=== PATIENT | male | born 1955 | race Caucasian/White ===

== ENCOUNTER → 2023-07-14 | Outpatient (CLI) | payer MEDICARE, SELFPAY ==
[2023-07-14 07:25] LABS: Absolute Lymphocyte Count 2.07 X10^3/uL (0.83-4.51); Absolute Neutrophil Count 3.5 X10^3/uL (2.0-7.7); Basophil# 0.11 X10^3/uL; Basophil% 1.6 % (0-1); Eosinophil# 0.52 X10^3/uL; Eosinophils% 7.7 % (0-5); Hematocrit 47.4 % (40-54); Hemoglobin 15.4 g/dL (13.0-16.5); Lymphocyte # 2.07 X10^3/ul (0.83-4.51); Lymphocyte % 30.5 % (19-41); Mean Corp Hgb Conc 32.5 g/dL (32-36); Mean Corpuscular Hgb 30.8 pg (27.0-32.0); Mean Corpuscular Volume 94.8 fL (80-94); Mean Platelet Vol. 11.2 fl (6.2-12.0); Monocyte# 0.57 X10^3/uL; Monocyte% 8.4 % (0-10); NRBC Flagged by Analyzer 0 % (0-5); Neutrophil % 51.5 % (47-70); Platelet Count 190 K/mm3 (150-450); RBC Distribution Width CV 13.2 % (11.6-14.6); RBC Distribution Width SD 45.6 fl (35.1-43.9); White Blood Count 6.8 K/mm3 (4.4-11.0)
[2023-07-14 08:06] LABS: ALB/GLOB Ratio 1.1 RATIO (0.9-2.4); AST(SGOT) 11 U/L (15-37); Alanine Aminotransfer ALT/SGPT 14 U/L (16-61); Albumin, Serum 3.6 g/dL (3.2-5.0); Alkaline Phosphatase 52 U/L (45-117); Anion Gap 3 (5-15); BUN 15 mg/dL (7-18); Calcium,Total 9.2 mg/dL (8.5-10.1); Chloride 110 mmol/L (98-107); Cholesterol 143 mg/dL (200); EST Glomerular Filtration Rate 79 mL/min (>60); Est Glom Filt Rate - Afr Amer 96 mL/min (>60); Globulin 3.2 g/dL (2.2-4.2); Glucose 92 mg/dL (74-106); High Density Lipoprotein 65 mg/dL; PSA,Total - Annual Screen 0.92 ng/mL (0.00-4.00); Protein, Total 6.8 g/dL (6.4-8.2); Sodium Level 141 mmol/L (136-145); Thyroid Stim Hormone (TSH) 2.31 uIU/mL (0.358-3.74); Triglycerides 49 mg/dL; Very Low Density Lipoprotein 10 mg/dL (5-40)
[2023-07-14 08:20] LABS: Vitamin D,25 Hydroxy 13.6 ng/mL
== END | disposition home or self-care (01) ==
LOC: LAB 06:04
PROVIDERS: PCP Internal Medicine; Referring Provider Internal Medicine; Visit Provider Internal Medicine
DX: Z13.220 Encounter for screening for lipoid disorders (principal); F17.210 Nicotine dependence, cigarettes, uncomplicated; E55.9 Vitamin D deficiency, unspecified; Z12.5 Encounter for screening for malignant neoplasm of prostate
CPT/HCPCS: 36415; 80053; 80061; 82306; 84153; 84443; 85025; G0103

== ENCOUNTER → 2023-07-17 | Outpatient (CLI) | payer MEDICARE, SELFPAY ==
--- NOTE | 2023-07-17 13:30 | RAD_ITS ---
EXAM: XR LUMBOSACRAL SPINE, 2 OR 3 VIEWS CLINICAL INDICATION: Low back and radicular pain TECHNIQUE: Frontal and lateral views of the lumbar spine and sacrum. COMPARISON: No relevant prior studies available. FINDINGS: VERTEBRAE: Mild anterior wedging at T12 and L1 vertebral bodies are presumably from remote injury. Mild degenerative retrolisthesis of L1 on L2, L2 on L3 and L3 on L4. No spondylolisthesis. Preservation of the normal lumbar lordosis. No significant facet arthropathy. DISC SPACES: No acute findings. Normal lumbar disc space heights. GASTROINTESTINAL TRACT: Unremarkable as visualized. Included bowel gas pattern is non-obstructive. RAD/Lumbar Spine 2 or 3 Views IMPRESSION: 1. Mild anterior wedging of T12 and L1 vertebral bodies are presumably from remote injury. The lateral views are not true lateral at the thoracolumbar junction. 2. No suspicious acute fractures of the lumbar spine. 3. Mild degenerative retrolisthesis of L1 on L2, L2 on L3 and L3 on L4. Electronically Signed: Eladio Kemp MD at 12:05 EST ,
== END | disposition home or self-care (01) ==
LOC: RAD 13:21
PROVIDERS: PCP Internal Medicine; Referring Provider Internal Medicine; Visit Provider Internal Medicine
DX: M54.50 Low back pain, unspecified (principal); M54.10 Radiculopathy, site unspecified
CPT/HCPCS: 72100

== ENCOUNTER 2023-08-11 11:30 | Outpatient (RCR) | payer MEDICARE, SELFPAY ==
--- NOTE | 2023-08-06 12:28 | HP.PTEVAL_ITS ---
Patient's Visit Information Visit Information Visit Information: JULY BURKS is a 68 year old M referred to Physical Therapy by Dr. Monica Valenzuela MD with a diagnosis of Dysfunction of the R RC. Date of Evaluation: 08/06/23 Physical Therapist: ROSS Garcia Visit Plan Frequency: 1-2x /Week Duration: 6 Weeks Plan: 1-2X/ week for 6 weeks for R shoulder scapular strength, RC strength, p ostural exercises with HEP HEP: BLUE MID ROW, SCAPULAR SQUEEZES, ORANGE DOUBLE ER Subjective Subjective: R shoulder when at its worst tingling down to fingers but ot for 3-4 weeks now. Tingling (came and went) and tightness and sometimes it locks up out to the side. If her rolls over on the R shoulder he will get pain. At rest he has no pain. said to go to PT. This has been going on for about 6 months. He is R handed. He has no neck pain. He did do a lot of desk work and retired now. The pain does not wake him up at night. Pain R shoulder pain: Pain Intensity (Out of 10): 3 Objective Objective: Bicep reflex 2+/3 B R handed: 90# and L 79# C-spine AROM: Flexion 100%, Ext 75%, Rot B 100%, SB B 85% UE AROM: R shoulder flex 9.3 and L 10.1 R shoulder ABD 7.8 and l 9.2 R shoulder ER 12.5 and L ER 12 R shoulder IR 6.5 and L 6.7 Balance/Special Test Scores Quick DASH Score: 20.4525 Rehabilitation Potential Rehabilitation Potential: Good Anticipated Interventions Patient/Client Instruction: Educate patient on: Condition and Plan of Care For the Purpose of:: To decrease pain, To decrease swelling/inflammation, To increase ROM, To improve nutrient delivery to tissue, To improve muscle performance and motor function, To improve ability to perform ADL's, To increase tolerance to activity/condition/position, To improve performance and independence with ADL's, To improve health of tissue, To decrease soft tissue restriction and To increase flexibility/ROM Therapeutic Exercise to Include: Strength training, Postural training, Flexibilty training, Neuromotor development, Passive ROM, Active ROM and Scap ular Strength/Stabilization For the Purpose of:: To decrease pain, To decrease swelling/inflammation, To increase ROM, To improve nutrient delivery to tissue, To improve muscle performance and motor function, To increase tolerance to activity/condition/position and To improve performance and independence with ADL's Manual Therapy Techniques to Include: Mobilization and Passive ROM For the Purpose of:: To decrease pain, To decrease swelling/inflammation, To increase ROM and To improve nutrient delivery to tissue Cryotherapy (ice pack, ice massage): Yes Thermo therapy (hot pack): Yes Ultrasound (thermal/non thermal): Yes For the Purpose of:: To decrease pain, To decrease swelling/inflammation, To increase ROM and To improve nutrient delivery to tissue Text: Thank you for the opportunity to evaluate your patient. For Medicare and Medicare HMO plans, please review the plan of care and approve it. It will need to be FAXED BACK to us at [phone] for Medicare purposes. For Medicare only, by signing this I certify the plan of care. Please let me know if there are questions or concerns regarding this plan of care. Physician Signature: Date:
== END 2023-08-11 19:00 | disposition home or self-care (01) ==
LOC: PT 11:30
PROVIDERS: PCP Internal Medicine; Referring Provider Internal Medicine; Visit Provider Internal Medicine
DX: M67.911 Unspecified disorder of synovium and tendon, right shoulder (principal)
CPT/HCPCS: 97110; 97161

== ENCOUNTER 2023-08-18 19:24 | Observation (INO) | payer MEDICARE, SELFPAY ==
[2023-08-18] VITALS (9 sets, daily range): BP systolic 120–156; BP diastolic 77–90; PULSE 95–107; RESP 11–28; TEMP 36.6–37; O2SAT 88–97; BMI 24.4
--- NOTE | 2023-08-18 19:52 | EKG12_ITS ---
Test Reason : DYSRHYTHMIA Blood Pressure : / mmHG Vent. Rate : 087 BPM Atrial Rate : 087 BPM P-R Int : 182 ms QRS Dur : 082 ms QT Int : 350 ms P-R-T Axes : 064 003 050 degrees QTc Int : 421 ms Normal sinus rhythm Normal ECG Confirmed by Von Fernando ([id number]), international editorial producer RJ LAGUERRE ([id number]) on 08/19/2023 1:46:22 PM Referred By: Temo Al Confirmed By:Von Fernando
--- NOTE | 2023-08-18 19:54 | EDS_ITS ---
HPI History of Present Illness Chief Complaint: Shortness of Breath Informant: patient Onset/Context/Timing Onset: Today Narrative Narrative: Patient presents secondary to cough and shortness of breath. He states he developed a cough late last night. After getting home from a chiropractor and today he was exposed to his pet rabbit who he is allergic to. He states he got short of breath and thought it was just an allergic reaction. He took 2 tabs of Claritin without improvement. EMS was called and they noted him to have a temperature of 99.7 with wheezing bilaterally. IV line was initiated and he was given IV Solu-Medrol. He was given a DuoNeb treatment and patient reports his breathing does feel improved. [facility] Medical History Back problem Bone fracture Cigarette smoker Hearing problem Seasonal allergies Home Medications NK 10/16/20 [History Last Taken Unknown] Allergy/AdvReac Type Severity Reaction Status Date / Time No Known Allergies Allergy Verified 08/18/23 19:25 Social History Smoking Status: Former smoker alcohol intake: current alcohol intake frequency: a few times a week substance use type: does not use what type of physical activity do you participate in: walking frequency: daily ROS ROS ED Constitutional Constitutional ED: Reports fever(s) and subjective; Denies chills Eyes Eyes: Denies change in vision or discharge from eye(s) ENT ENT ED: Denies discharge from eye(s), rhinorrhea or sore throat Cardiovascular Cardiovascular: Denies chest pain or palpitations Respiratory/Chest Respiratory/Chest: Reports cough and dyspnea Gastrointestinal Gastrointestinal: Denies abdominal pain, nausea or vomiting Genitourinary Genitourinary ED: Denies dysuria Musculoskeletal Musculoskeletal: Denies back pain or extremity pain Integumentary Denies Abrasions or rash Neurologic Neurologic: Reports headache(s); Denies weakness Psychiatric Psychiatric: Denies anxiety or depression Allergic/Immunologic Allergic/Immunologic ED: Denies lip swelling or urticaria EXAM Physical Exam Const Vital Signs: 08/18/23 19:25 08/18/23 19:28 08/18/23 19:33 Temperature 98 F 98 F Temperature Source Oral Temporal Pulse Rate 107 H 107 H Respiratory Rate 28 H 28 H Respiratory Effort Labored Respiratory Depth Normal Respiratory Pattern Blood Pressure 141/87 H 141/87 H Blood Pressure Mean 105 105 Pulse Ox 88 88 Oxygen Delivery Method Room Air Room Air Nasal Cannula Oxygen Flow Rate (L/min) 3 08/18/23 20:28 08/18/23 20:54 08/18/23 20:09 Temperature 98.1 F 98.1 F Temperature Source Oral Oral Pulse Rate 95 99 97 Respiratory Rate 16 16 18 Respiratory Effort Respiratory Depth Respiratory Pattern Normal Blood Pressure 121/77 H 120/79 Blood Pressure Mean 91 92 Pulse Ox 95 96 Oxygen Delivery Method Nasal Cannula Nasal Cannula Oxygen Flow Rate (L/min) 2 2 08/18/23 22:00 Temperature 98.6 F Temperature Source Oral Pulse Rate 101 H Respiratory Rate 16 Respiratory Effort Respiratory Depth Respiratory Pattern Blood Pressure 156/90 H Blood Pressure Mean 112 Pulse Ox 97 Oxygen Delivery Method Nasal Cannula Oxygen Flow Rate (L/min) 2 Positive well nourished and well developed General Appearance ED: well developed HEENT Reports moist mucous membranes Eyes EOMs intact bilaterally Chest Wall inspection of chest normal and palpation of chest normal Resp normal respiratory effort Resp Narrative: Expiratory wheezes bilaterally. Cardio regular rate and regular rhythm GI non-tender Palpation: soft Extremity normal to inspection Neuro oriented x3 and no sensory deficits noted Motor Exam: strength 5/5 throughout Psych mental status grossly normal Skin no rashes or lesions noted MDM MDM MDM Narrative Medical decision making narrative: Patient placed on quality assurance monitor body. EKG obtained to evaluate for cardiac arrhyth jeane/ischemia. Chest x-ray obtained to evaluate for acute lung pathology, cardiac size, or mediastinal abnormality. IV line initiated. Labwork obtained to evaluate for leukocytosis, anemia, and electrolyte derangement. Patient given additional albuterol treatments. Swab for COVID, influenza, and RSV will be obtained. History & Record Review Discussion w/independent historian: Patient Lab Data Attestation: I reviewed the patient's lab results. Labs: Laboratory Results - last 24 hr 08/18/23 08/18/23 20:00 22:12 WBC 9.9 RBC 4.88 Hgb 15.3 Hct 45.0 MCV 92.2 MCH 31.4 MCHC 34.0 RDW Std Deviation 43.3 RDW Coeff of Caio 12.9 Plt Count 217 MPV 9.7 Immature Gran % (Auto) 0.300 Neut % (Auto) 78.2 H Lymph % (Auto) 10.8 L [place] % (Auto) 6.4 Eos % (Auto) 3.7 Baso % (Auto) 0.6 Absolute Neuts (auto) 7.8 H Absolute Lymphs (auto) 1.07 Nucleated RBC % 0 Sodium 141 Potassium 4.0 Chloride 107 Carbon Dioxide 31.0 Anion Gap 3 L BUN 14 Creatinine 0.94 Estim Creat Clear Calc 77.30 Est GFR (MDRD) Af Amer 103 Est GFR (MDRD) Non-Af 85 BUN/Creatinine Ratio 14.8 Glucose 113 H Calcium 9.4 Troponin I High Sens 7 8 B-Natriuretic Peptide 21.0 Radiography Chest X-Ray - ED: 1 View, Read by ED Physician, Normal, Heart, Lungs and Mediastinum Diagnostic Testing: Clinical Impression(s) from Imaging Studies Chest X-Ray 08/18/23 20:50 IMPRESSION: Normal x-ray examination of the chest. Electronically Signed: Armando Rivers MD at 21:13 EDT Reading Location ID and State: [id number] / [employer] Tel , Service support , Chest CTA 08/18/23 21:54 IMPRESSION: Normal CTA chest examination, without a demonstrated pulmonary embolism or arterial dissection. Electronically Signed: Armando Rivers MD at 22:25 EDT Reading Location ID and State: [email or web address] / [employer] Tel , Service support , EKG Initial EKG: Attestation: I personally reviewed and interpreted this EKG as follows: Interpretation: Sinus Rhythm (Sinus 87 with no acute ischemia.) Treatment and Re-Evaluation :: CBC was normal white count 9.9 with a hemoglobin of 15.3. Chemistry studies unremarkable. Troponin is normal at 7 with a BNP of 21. Portable chest x-ray per my interpretation reveals no focal infiltrate. Radiology interpretation reviewed and agrees. EKG is sinus rhythm at 87 bpm with no acute ischemia. On repeat evaluation patient does report improvement after breathing treatments. He is taken off of nasal cannula and his O2 sat ranges from 88-92. Patient now states that he forgot to mention that he has been getting very winded with any exertion for the past 2 or 3 days. In light of this I will obtain a delta troponin and a CTA of the chest to rule out PE. Repeat troponin is normal at 8. CTA of the chest reveals no evidence of pulmonary embolism or infiltrate. On room air while sitting in bed and talking to his his oxygen saturation dropped to 87% and patient did had to be placed back on nasal cannula. Given this patient will be admitted for observation status given his mild hypoxia. Lung sounds with improved air movement bilaterally with rare wheezes at this time. Discharge Plan Triage Chief Complaint: Shortness of Breath ED Provider: Iva Hernandez Dx/Rx/DC Orders Clinical Impression: Bronchospasm, Hypoxia Prescriptions: No Action NK Primary Care Provider: Monica Valenzuela Referrals: Monica Valenzuela MD [Primary Care Provider] - Disposition Disposition: Acute Care Hospital [facility]
[2023-08-18] MEDS: Albuterol 2.5 MG/3 ML VIAL.NEB. INHALATION ×3 (20:09→20:43)
[2023-08-18 20:16] LABS: Absolute Lymphocyte Count 1.07 X10^3/uL (0.83-4.51); Absolute Neutrophil Count 7.8 X10^3/uL (2.0-7.7); Basophil# 0.06 X10^3/uL; Basophil% 0.6 % (0-1); Eosinophil# 0.37 X10^3/uL; Eosinophils% 3.7 % (0-5); Hemoglobin 15.3 g/dL (13.0-16.5); Lymphocyte # 1.07 X10^3/ul (0.83-4.51); Lymphocyte % 10.8 % (19-41); Mean Corpuscular Hgb 31.4 pg (27.0-32.0); Mean Corpuscular Volume 92.2 fL (80-94); Mean Platelet Vol. 9.7 fl (6.2-12.0); Monocyte# 0.63 X10^3/uL; Monocyte% 6.4 % (0-10); NRBC Flagged by Analyzer 0 % (0-5); Neutrophil # 7.76 X10^3/uL (2.7-7.7); Neutrophil % 78.2 % (47-70); Platelet Count 217 K/mm3 (150-450); RBC Distribution Width CV 12.9 % (11.6-14.6); RBC Distribution Width SD 43.3 fl (35.1-43.9); Red Blood Count 4.88 M/mm3 (4.6-6.2); White Blood Count 9.9 K/mm3 (4.4-11.0)
[2023-08-18 20:39] LABS: Anion Gap 3 (5-15); BUN 14 mg/dL (7-18); BUN/Creat Ratio 14.8 RATIO (10-20); Calcium,Total 9.4 mg/dL (8.5-10.1); Chloride 107 mmol/L (98-107); Creatinine, Serum 0.94 mg/dL (0.70-1.30); EST Glomerular Filtration Rate 85 mL/min (>60); Est Glom Filt Rate - Afr Amer 103 mL/min (>60); Glucose 113 mg/dL (74-106); Sodium Level 141 mmol/L (136-145); Troponin-I HS 7 pg/mL (3.0-78.0)
--- NOTE | 2023-08-18 20:50 | RAD_ITS ---
STUDY: X-RAY CHEST REASON FOR EXAM: Male, 68 years old. sob TECHNIQUE: Single AP portable view of the chest. COMPARISON: None. FINDINGS: The lungs are clear and expanded. There is no demonstrated pleural abnormality. Normal size heart. Normal mediastinum and radha. Normal visualized pulmonary arteries. Normal visualized aortic arch and descending thoracic aorta. Normal visualized thoracic spine. Normal visualized ribs, clavicles, and shoulders. There is no demonstrated abnormality of the visualized soft tissue structures of the upper abdomen. RAD/Chest 1 View (Portable) IMPRESSION: Normal x-ray examination of the chest. Electronically Signed: Armando Rivers MD at 21:13 EDT ,
--- NOTE | 2023-08-18 20:55 | CPS ---
x3 Albuterol given to pt. in ER in total
--- NOTE | 2023-08-18 21:52 | ED.RN ---
pt trialed on room air by respiratory therapy. pt desat down to 87% on room air. dr ochoa notified
--- NOTE | 2023-08-18 21:54 | CT_ITS ---
STUDY: CTA CHEST REASON FOR EXAM: Male, 68 years old. dyspnea, hypoxia RADIATION DOSAGE (If Supplied By Facility): CTDIvol = ( 11.85 ) mGy, DLP = ( 343.00 ) mGycm TECHNIQUE: The examination was performed with the intravenous administration of 100ML ISOVUE 370. Post-processing of the angiographic images was performed, with multiplanar reformation and 3D reconstruction. Individualized dose optimization techniques were used for this CT. COMPARISON: Chest x-ray earlier today FINDINGS: Normal enhancement of the main pulmonary artery and right and left pulmonary arteries. Normal enhancement of the bilateral peripheral pulmonary arteries. There is no demonstrated pulmonary embolism. Normal thoracic aorta and visualized great vessels. There is no demonstrated aortic dissection. Normal heart and pericardium. Normal mediastinum. Normal hilar regions. Normal visualized trachea and bronchi. The lungs are well expanded. Normal pulmonary parenchyma. Normal pleura. Normal chest wall structures. Normal osseous structures. Normal visualized upper abdomen. CT/CTA Chest W/WO Contrast IMPRESSION: Normal CTA chest examination, without a demonstrated pulmonary embolism or arterial dissection. Electronically Signed: Armando Rivers MD at 22:25 EDT ,
[2023-08-18 22:40] LABS: Troponin-I HS 8 pg/mL (3.0-78.0)
--- NOTE | 2023-08-18 23:11 | PCM.HP.STD ---
[facility] - General General Date of Admission: 08/18/23 Date of Service: 08/18/23 Chief Complaint: SOB, Wheezing and Cough. [facility] Narrative JULY BURKS, is a 68 M with a past medical history of tobacco abuse, seasonal allergies, OA; with low back pain and history of previous asthma after severe pneumonia in 2006; treated with inhalers who presents to [facility] ER complaining of SOB, wheezing and cough. Mr. Burks reports his symptoms began approximately 24 hours prior to admission when he developed a cough late last night on the evening of August 17, 2023. Then after getting home from a chiropractic visit earlier today he was exposed to his pet rabbit to whom he is allergic. He then noticed worsening shortness of breath and cough with intermittent wheezing and just initially thought it was an allergic reaction so he took 2 Claritin tablets without improvement and then he developed subjective fever and hyperventilation culminating in him struggling to breathe so then he subsequently activated EMS. EMS records show the patient had a mild temperature elevation of 99.7 ?F along with bilateral diffuse wheezing and he was then treated with IV Solu-Medrol and DuoNeb en-route with breathing subsequently improved. He denies associated fever, chills, nausea or vomiting. In the ER he was diagnosed with an acute exacerbation of asthma complicated by clinical evidence of acute hypoxic respiratory insufficiency with oxygen saturation of 88% on room air present on admission suspected to be triggered at least in part by allergy to his pet rabbit and he was then admitted to the general medical floor for a stay that is expected to be greater than 48 hours. [facility] Medical History Back problem Bone fracture Cigarette smoker Hearing problem Seasonal allergies Home Medications NK 10/16/20 [History Last Taken Unknown] Allergy/AdvReac Type Severity Reaction Status Date / Time No Known Allergies Allergy Verified 08/18/23 19:25 Social History Smoking Status: Former smoker alcohol intake: current alcohol intake frequency: a few times a week substance use type: does not use what type of physical activity do you participate in: walking frequency: daily ROS ROS Narrative Review of systems: General: Patient admits to subjective fever but he denies chills. HENT: Denies headache, denies stuffy nose, denies sore throat EYES: Denies changes in vision or discharge from eyes. Resp: Patient admits to cough, wheezing and SANDOVAL that progressed to SOB at rest. Cardiac: Denies chest pain or palpitations. GI: Denies abdominal pain, denies changes in bowel, denies nausea or vomiting. : Denies changes in urination Extremity: Denies swelling Musculoskeletal: Feels somewhat generally weak and unwell Neuro: Patient admits to headache but he denies any numbness/tingling or focal neurologic weakness. Heme: Denies any bleeding or bruising Skin: Denies rashes Psychiatric: No complaints voiced related to uncontrolled depression or anxiety. Endocrine: No polyuria, polydipsia or polyphagia. The rest of the 14 point ROS was negative except for positives in HPI. Vital Signs Vital Signs Vital Signs: 08/18/23 19:25 08/18/23 19:28 08/18/23 19:33 Temperature 98 F 98 F Temperature Source Oral Temporal Pulse Rate 107 H 107 H Respiratory Rate 28 H 28 H Respiratory Effort Labored Respiratory Depth Normal Respiratory Pattern Blood Pressure 141/87 H 141/87 H Blood Pressure Mean 105 105 Pulse Ox 88 88 Oxygen Delivery Method Room Air Room Air Nasal Cannula Oxygen Flow Rate (L/min) 3 08/18/23 20:28 08/18/23 20:54 08/18/23 20:09 Temperature 98.1 F 98.1 F Temperature Source Oral Oral Pulse Rate 95 99 97 Respiratory Rate 16 16 18 Respiratory Effort Respiratory Depth Respiratory Pattern Normal Blood Pressure 121/77 H 120/79 Blood Pressure Mean 91 92 Pulse Ox 95 96 Oxygen Delivery Method Nasal Cannula Nasal Cannula Oxygen Flow Rate (L/min) 2 2 08/18/23 22:00 08/18/23 23:00 08/18/23 23:00 Temperature 98.6 F 98.2 F Temperature Source Oral Oral Pulse Rate 101 H 98 95 Respiratory Rate 16 11 L 11 L Respiratory Effort Respiratory Depth Respiratory Pattern Blood Pressure 156/90 H 120/89 H 120/89 H Blood Pressure Mean 112 99 99 Pulse Ox 97 95 94 Oxygen Delivery Method Nasal Cannula Nasal Cannula Nasal Cannula Oxygen Flow Rate (L/min) 2 2 2 Weight Weight: 165 lb 5.547 oz Body Mass Index (BMI) 24.4 Physical Exam Const alert, oriented x3, no apparent distress, average body habitus and healthy appearing General Appearance: cooperative HEENT normocephalic, head/scalp atraumatic, hearing grossly normal bilaterally and moist oral mucous membranes Eyes PERRL and EOMs intact bilaterally Neck no lymphadenopathy and supple Resp Resp Narrative: Diminished breath sounds throughout with expiratory wheezes. Auscultation: wheezes Cardio regular rate and regular rhythm GI normal to inspection, nondistended, normoactive bowel sounds, soft to palpation, non-tender and non-distended Extremity normal to inspection and full ROM Skin Skin Narrative: Patient has no evidence of rash. Neuro oriented x3, CN's II-XII intact bilaterally, moves all extremities and no focal motor deficits Sensorium / Orientation: awake, alert, oriented to person, oriented to place and oriented to time Speech: speech normal Motor Exam: strength 5/5 throughout Psych affect normal Results Medical Records Data Attestation: I reviewed the patient's medical records Lab / Micro Data Attestation: I reviewed the patient's lab results. 08/18/23 20:00 08/18/23 20:00 Labs: Laboratory Results - last 24 hr 08/18/23 20:00: WBC 9.9, RBC 4.88, Hgb 15.3, Hct 45.0, MCV 92.2, MCH 31.4, MCHC 34.0, RDW Std Deviation 43.3, RDW Coeff of Caio 12.9, Plt Count 217, MPV 9.7, Immature Gran % (Auto) 0.300, Neut % (Auto) 78.2 H, Lymph % (Auto) 10.8 L, Lake % (Auto) 6.4, Eos % (Auto) 3.7, Baso % (Auto) 0.6, Absolute Neuts (auto) 7.8 H, Absolute Lymphs (auto) 1.07, Nucleated RBC % 0, Sodium 141, Potassium 4.0, Chloride 107, Carbon Dioxide 31.0, Anion Gap 3 L, BUN 14, Creatinine 0.94, Estim Creat Clear Calc 77.30, Est GFR (MDRD) Af Amer 103, Est GFR (MDRD) Non-Af 85, BUN/Creatinine Ratio 14.8, Glucose 113 H, Calcium 9.4, Troponin I High Sens 7, B-Natriuretic Peptide 21.0 08/18/23 22:12: Troponin I High Sens 8 Micro: Microbiology 08/18/23 20:05 Mucosa - Nose SARS-CoV-2, Influenza & RSV (PCR) - Final Imaging Radiology Impression Chest X-Ray 08/18/23 20:50 IMPRESSION: Normal x-ray examination of the chest. Electronically Signed: Armando Rivers MD at 21:13 EDT Reading Location ID and State: [id number] / [employer] Tel , Service support , Chest CTA 08/18/23 21:54 IMPRESSION: Normal CTA chest examination, without a demonstrated pulmonary embolism or arterial dissection. Electronically Signed: Armando Rivers MD at 22:25 EDT , Assessment & Plan Assessment/Plan (1) Acute asthma exacerbation: QUALIFIERS: Asthma persistence: intermittent Asthma severity: unspecified severity Qualified Code(s): J45.21 - Mild intermittent asthma with (acute) exacerbation (2) Hypoxia: (3) Seasonal allergies: PLAN: Plan 1. Acute exacerbation of asthma - Admit to general medical floor. Give IV Solu-Medrol plus scheduled and as needed nebulizers. Give Tylenol as needed pain or fever. 2. Seasonal allergies likely triggered by exposure to pet rabbit causing #1 - Patient will need to increase his allergy regimen and also consider getting rid of his pet rabbit. 3. Acute hypoxic respiratory insufficiency arising from #1 & #2 - Wean supplemental oxygen as tolerated. 4. History of former tobacco abuse - Noted. 5. OA; with low back pain - Give Tylenol as needed. 6. DVT prophylaxis - Lovenox 40 mg subcu daily. Total time: Approximately 55 minutes. Charges/Coding Visit Charges Inpatient E&M: 17249 Init Hosp L2
[2023-08-19] VITALS (8 sets, daily range): BP systolic 111–135; BP diastolic 75–87; PULSE 11–94; RESP 16–18; TEMP 36.5–36.9; O2SAT 87–97; BMI 23.6; BMI 23.8
[2023-08-19] MEDS: 0.9% Normal Saline (1000mL) 1,000 ML 70 ML IV (01:13)
[2023-08-19] MEDS: MethylPREDNISolone 125 MG/2 ML Vial IV (01:13)
[2023-08-19 07:18] LABS: Absolute Lymphocyte Count 0.37 X10^3/uL (0.83-4.51); Absolute Neutrophil Count 7.4 X10^3/uL (2.0-7.7); Basophil# 0.01 X10^3/uL; Basophil% 0.1 % (0-1); Hematocrit 43.8 % (40-54); Hemoglobin 14.8 g/dL (13.0-16.5); Lymphocyte # 0.37 X10^3/ul (0.83-4.51); Lymphocyte % 4.7 % (19-41); Mean Corp Hgb Conc 33.8 g/dL (32-36); Mean Corpuscular Hgb 30.8 pg (27.0-32.0); Mean Corpuscular Volume 91.3 fL (80-94); Mean Platelet Vol. 9.4 fl (6.2-12.0); Monocyte# 0.07 X10^3/uL; Monocyte% 0.9 % (0-10); NRBC Flagged by Analyzer 0 % (0-5); Neutrophil % 93.8 % (47-70); POSITIVE DIFFERENTIAL YES; Platelet Count 219 K/mm3 (150-450); RBC Distribution Width CV 12.9 % (11.6-14.6); RBC Distribution Width SD 43.6 fl (35.1-43.9); White Blood Count 7.9 K/mm3 (4.4-11.0)
[2023-08-19 07:59] LABS: ALB/GLOB Ratio 1.1 RATIO (0.9-2.4); AST(SGOT) 15 U/L (15-37); Alanine Aminotransfer ALT/SGPT 17 U/L (16-61); Albumin, Serum 3.5 g/dL (3.2-5.0); Alkaline Phosphatase 47 U/L (45-117); Anion Gap 9 (5-15); BUN 13 mg/dL (7-18); BUN/Creat Ratio 15.9 RATIO (10-20); Calcium,Total 9.2 mg/dL (8.5-10.1); Chloride 107 mmol/L (98-107); Creatinine, Serum 0.82 mg/dL (0.70-1.30); EST Glomerular Filtration Rate 100 mL/min (>60); Est Glom Filt Rate - Afr Amer 121 mL/min (>60); Estimated Creatinine Clearance 85.73 ml/min; Globulin 3.1 g/dL (2.2-4.2); Glucose 146 mg/dL (74-106); Magnesium 2.2 mg/dL (1.6-2.6); Phosphorus 3.1 mg/dL (2.5-4.9); Potassium 4.2 mmol/L (3.5-5.1); Protein, Total 6.6 g/dL (6.4-8.2); Sodium Level 142 mmol/L (136-145); Thyroid Stim Hormone (TSH) 0.36 uIU/mL (0.358-3.74)
--- NOTE | 2023-08-19 10:06 | CASEMGMT ---
MIKE EASLEY Assessment: Face to Face with pt for initial transition planning/care coordination assessment. MIKE EASLEY introduced self and role at [facility], pt voices understanding and consents to assessment. Pt is A&O x4 and answers all questions appropriately at this time. Pt sitting up in chair in no distress with oxygen on. Care providers, pharmacy, and demographics verified/updated. Admitting Dx: acute exac of asthma PCP:Nicolas Specialists:jimmie Reynolds Pharmacy: [facility] Retail Insurance: [employer] [facility] Prescription Benefit: yes LNOK: Janette Brown, Living Arrangements: Pt lives with in a two story home with 4 steps to enter with a rail as well as a ramp. Pt reports he is I in ADL's and denies concerns at home. Transportation: Pt drives self and denies concerns with transportation. DME:None HHC/SNF: Denies hx of Pt states no concerns with going home at time of dc. Pt states no further concerns/needs. CM to follow. Advised pt to ask CM if any further question/concerns/needs arise, voices understanding. Pt Goal: Home Plan: maile Garay for need for oxygen Adriana MCKEON CM
[2023-08-19] MEDS: Enoxaparin 40 MG/0.4 ML Syringe SC (11:16)
[2023-08-19] MEDS: MethylPREDNISolone 125 MG/2 ML Vial 60 MG IV (11:16)
[2023-08-19] MEDS: 0.9% Saline Lock 10 ML Syringe IV ×3 (11:16→22:02)
[2023-08-19] MEDS: Famotidine 20 MG Tablet PO ×2 (11:16→22:02)
--- NOTE | 2023-08-19 16:18 | PCM.PN.HOSP ---
Reason for Visit Reason for Visit: Shortness of breath/wheezing/cough Subjective Subjective Mr. Brown is a 68-year-old white male who presents emergency department which [facility] on 08/18/2023 due to shortness of breath, wheezing, and cough that started about 24 hours prior to presentation. He has no baseline known lung disease but does have a previous history of smoking and seasonal allergies. He denied any history of asthma with my discussion but reported asthma to the admitting physician. He evidently went to a chiropractic visit on the day of presentation and was exposed to a pet rabbit to whom he is allergic he then noticed worsening shortness of breath and a cough with intermittent wheezing that would not tera despite him taking 2 Claritin tablets. He also then developed a subjective fever and hyperventilation which caused him to have issues breathing. With this EMS was activated. Vital signs on presentation showed temperature of 98, heart rate was 107, blood pressure is 141/87 and pulse ox was 88% on room air. Patient is not oxygen dependent baseline. His CBC on presentation was overtly unremarkable however he did have a left shift with a 78.2% neutrophilia. No eosinophilia was present. His chemistry panel was unremarkable. EKG was unremarkable for any acute findings. Chest x-ray showed no abnormalities and CTA of his chest was unremarkable as well. His rapid COVID/RSV/flu was negative. He was noted to be markedly wheezy diffusely and was treated with IV Solu-Medrol and DuoNebs and route and again in the emergency department. Today the patient reports he is feeling much better. He still has some mild wheeze but he states his wheezing is improved and he does not feel short of breath. He still is requiring oxygen but this has been weaned to 1 L. Objective Data Objective Data Vital Signs: Vital Signs Temp Pulse Resp BP Pulse Ox O2 Del Method O2 Flow Rate 97.8 F 90 18 111/75 94 Nasal Cannula 1 08/19/23 15:53 08/19/23 15:53 08/19/23 15:53 08/19/23 15:53 08/19/23 15:53 08/19/23 15:53 08/19/23 15:53 FiO2 94 08/19/23 09:27 Oxygen Flow Rate (L/min) 1 Oxygen Delivery Method Nasal Cannula Weight: 72.8 kg Body Mass Index (BMI) 23.8 Intake & Output: Intake and Output for Last 24 Hours 08/17/23 08/18/23 08/19/23 23:59 23:59 23:59 Intake Total 700 / 700 Balance 700 / 700 Lab / Micro Data 08/19/23 06:52 08/19/23 06:52 Labs: Laboratory Results - last 24 hr 08/18/23 20:00: WBC 9.9, RBC 4.88, Hgb 15.3, Hct 45.0, MCV 92.2, MCH 31.4, MCHC 34.0, RDW Std Deviation 43.3, RDW Coeff of Caio 12.9, Plt Count 217, MPV 9.7, Immature Gran % (Auto) 0.300, Neut % (Auto) 78.2 H, Lymph % (Auto) 10.8 L, [place] % (Auto) 6.4, Eos % (Auto) 3.7, Baso % (Auto) 0.6, Absolute Neuts (auto) 7.8 H, Absolute Lymphs (auto) 1.07, Nucleated RBC % 0, Sodium 141, Potassium 4.0, Chloride 107, Carbon Dioxide 31.0, Anion Gap 3 L, BUN 14, Creatinine 0.94, Estim Creat Clear Calc 77.30, Est GFR (MDRD) Af Amer 103, Est GFR (MDRD) Non-Af 85, BUN/Creatinine Ratio 14.8, Glucose 113 H, Calcium 9.4, Troponin I High Sens 7, B-Natriuretic Peptide 21.0 08/18/23 22:12: Troponin I High Sens 8 08/19/23 06:52: WBC 7.9, RBC 4.80, Hgb 14.8, Hct 43.8, MCV 91.3, MCH 30.8, MCHC 33.8, RDW Std Deviation 43.6, RDW Coeff of Caio 12.9, Plt Count 219, MPV 9.4, Immature Gran % (Auto) 0.500, Neut % (Auto) 93.8 H, Lymph % (Auto) 4.7 L, [place] % (Auto) 0.9, Eos % (Auto) 0.0, Baso % (Auto) 0.1, Absolute Neuts (auto) 7.4, Absolute Lymphs (auto) 0.37 L, Nucleated RBC % 0, Sodium 142, Potassium 4.2, Chloride 107, Carbon Dioxide 26.0, Anion Gap 9, BUN 13, Creatinine 0.82, Estim Creat Clear Calc 85.73, Est GFR (MDRD) Af Amer 121, Est GFR (MDRD) Non-Af 100, BUN/Creatinine Ratio 15.9, Glucose 146 H, Calcium 9.2, Phosphorus 3.1, Magnesium 2.2, Total Bilirubin 0.60, AST 15, ALT 17, Alkaline Phosphatase 47, Total Protein 6.6, Albumin 3.5, Globulin 3.1, Albumin/Globulin Ratio 1.1, TSH 0.36 Micro: Microbiology 08/18/23 20:05 Mucosa - Nose SARS-CoV-2, Influenza & RSV (PCR) - Final Radiography Diagnostic Testing: Radiology Impression Chest X-Ray 08/18/23 20:50 IMPRESSION: Normal x-ray examination of the chest. Electronically Signed: Armando Rivers MD at 21:13 EDT Reading Location ID and State: [id number] / [employer] Tel , Service support , Chest CTA 08/18/23 21:54 IMPRESSION: Normal CTA chest examination, without a demonstrated pulmonary embolism or arterial dissection. Electronically Signed: Armando Rivers MD at 22:25 EDT Reading Location ID and State: [id number] / [employer] Tel , Service support , Physical Exam Const alert, oriented x3, no apparent distress, average body habitus, healthy appearing and well nourished Constitutional Narrative: Very pleasant, upper middle-aged, white male, sitting up in chair at the bedside, at bedside, patient appears comfortable HEENT head/scalp atraumatic and moist oral mucous membranes HEENT Narrative: Mallampati 2, no thrush Head and Scalp: normocephalic Resp normal respiratory effort, no retractions and no use of accessory muscles Resp Narrative: Diffuse scattered end expiratory wheezes Auscultation: Negative for rales, rhonchi or wheezes Cardio regular rate, regular rhythm, S1 normal heart sound, S2 normal heart sound, no murmurs, no rub, no gallops and no clicks GI normal to inspection, nondistended, normoactive bowel sounds, soft to palpation and non-tender Extremity no clubbing, cyanosis or edema Neuro oriented x3, moves all extremities and no focal motor deficits Speech: speech normal Psych affect normal Psych Narrative: Very pleasant, eye contact is good, patient interacts appropriately Assessment & Plan Assessment/Plan (1) Hypoxia: (2) Shortness of breath: (3) Wheezing: PLAN: Plan Acute hypoxia with shortness of breath and wheezing -Patient denied history of asthma and takes no medications at home however it was initially felt that he may have an asthma exacerbation related to pet dander -CT a of the chest was unremarkable and shows no signs of COPD however patient does have a history of tobacco abuse--> patient states he has since quit -COVID/flu/RSV negative -Check respiratory viral panel -Continue IV steroids at 40 every 8 -Continue scheduled and as needed nebulizers -I-S/Acapella -Currently requiring 2 L nasal cannula but oxygenation and wheezing are improving Hyperglycemia -Likely related to steroid dosing while hospitalized -No further workup needed at this time -If persistently elevated in outpatient could check hemoglobin A1c History of tobacco abuse -Remote -Encourage ongoing cessation DVT prophylaxis -Continue enoxaparin subcu daily CODE STATUS Full code Charges/Coding Visit Charges Inpatient E&M: 81539 Subs Hosp L2
[2023-08-19] MEDS: Ipratropium/Albuterol Sulfate 3 ML AMPUL.NEB INHALATION (18:53)
[2023-08-20 04:11] VITALS: BP 115/76; PULSE 76; RESP 18; TEMP 36.4; O2SAT 97
[2023-08-20 06:00] VITALS: BMI 23.7
[2023-08-20] MEDS: 0.9% Saline Lock 10 ML Syringe IV (06:32)
[2023-08-20 08:04] VITALS: O2SAT 92
[2023-08-20 08:55] VITALS: BP 115/78; PULSE 75; RESP 18; TEMP 36.7; O2SAT 93
[2023-08-20] MEDS: Enoxaparin 40 MG/0.4 ML Syringe SC (08:58)
[2023-08-20] MEDS: Famotidine 20 MG Tablet PO (08:58)
[2023-08-20 09:54] VITALS: O2SAT 91; O2SAT 94
--- NOTE | 2023-08-20 11:25 | PCM.DC.SUM ---
Providers Date of Admission: 08/18/23 Date of Discharge: 08/20/23 Primary Care Physician: Dr. Monica Valenzuela MD Reason For Visit: ACUTE EXACERBATION OF ASTHMA Diagnosis Discharge Diagnosis (1) Hypoxia: Status: Acute Code(s): R09.02 - Hypoxemia (2) Shortness of breath: Status: Acute Code(s): R06.02 - Shortness of breath (3) Wheezing: Status: Acute Code(s): R06.2 - Wheezing Medications at Discharge Home Medications NK 10/16/20 albuterol sulfate 90 mcg/actuation aerosol inhaler 1 inh inhalation Q6H PRN shortness of breath or wheezing #8.5 grams 08/20/23 prednisone 10 mg tablet 10 mg PO DAILY #20 tabs 08/20/23 Hospital Course Procedures EKG and - (Chest x-ray/CTA chest) Summary of Care Provided Minutes Spent on Discharge: 36 Hospital Course: Mr. Brown is a 68-year-old white male who presents emergency department which [facility] on 08/18/2023 due to shortness of breath, wheezing, and cough that started about 24 hours prior to presentation. He has no baseline known lung disease but does have a previous history of smoking and seasonal allergies. He denied any history of asthma with my discussion but reported asthma to the admitting physician. He evidently went to a chiropractic visit on the day of presentation and was exposed to a pet rabbit to whom he is allergic he then noticed worsening shortness of breath and a cough with intermittent wheezing that would not tera despite him taking 2 Claritin tablets. He also then developed a subjective fever and hyperventilation which caused him to have issues breathing. With this EMS was activated. Vital signs on presentation showed temperature of 98, heart rate was 107, blood pressure is 141/87 and pulse ox was 88% on room air. Patient is not oxygen dependent baseline. On exam he had marked diffuse wheezing. His CBC on presentation was overtly unremarkable however he did have a left shift with a 78.2% neutrophilia. No eosinophilia was present. His chemistry panel was unremarkable. EKG was unremarkable for any acute findings. Chest x-ray showed no abnormalities and CTA of his chest was unremarkable as well. His rapid COVID/RSV/flu was negative. He was noted to be markedly wheezy diffusely and was treated with IV Solu-Medrol and DuoNebs. He was admitted to the medical floor and placed on steroids, nebulizers scheduled and as needed, given incentive spirometry and Acapella and we obtained a respiratory viral panel. Respiratory viral panel was unremarkable. Based on his history and presentation I suspect he has some reactive airway disease possibly COPD and have recommended that he follow-up as an outpatient with pulmonary medicine to obtain PFTs in a few weeks as an outpatient. I have given him information to call make an appointment for this. He improved quite quickly and still had slight wheeze but his oxygenation improved significantly and by the a.m. of 08/20/2023 he was on room air. We did perform an ambulatory pulse ox and at rest on room air is 91% and actually improved to 94% with exertion. I encouraged him to continue using his incentive spirometry and Acapella after discharge avoid pet dander and placed him on a prednisone taper at discharge for short course. I also gave him an albuterol inhaler as rescue for at home if this happens in the future. Patient was able to be discharged home in stable condition on 08/20/2023. I have asked him to follow-up with his primary care physician in the next month. I did send her home with a short prednisone taper as well as a rescue albuterol inhaler and he was instructed by respiratory therapy how to use it prior to discharge. Discharge diagnoses: Acute hypoxia-resolved Shortness of breath-resolved Wheezing-resolving Suspected reactive airway disease Hyperglycemia secondary to steroids History of tobacco abuse Physical Exam Const alert, oriented x3, no apparent distress, average body habitus, healthy appearing and well nourished Constitutional Narrative: Very pleasant, upper middle-aged, white male, sitting up in chair at the bedside, patient appears comfortable General Appearance: cooperative, comfortable, well kempt and well developed Orientation / Consciousness: awake Exam Limitations: no limitations HEENT normocephalic, head/scalp atraumatic, hearing grossly normal bilaterally and moist oral mucous membranes HEENT Narrative: Mallampati 2, no thrush Eyes PERRL, EOMs intact bilaterally and conjunctivae normal Eyes Narrative: No scleral icterus Neck no lymphadenopathy and supple Resp normal respiratory effort, no retractions and no use of accessory muscles Resp Narrative: Very few scattered wheezes- much improved, patient on room air Auscultation: Negative for rales, rhonchi or wheezes Cardio regular rate, regular rhythm, S1 normal heart sound, S2 normal heart sound, no murmurs, no rub, no gallops and no clicks GI normal to inspection, nondistended, normoactive bowel sounds, soft to palpation and non-tender Extremity no clubbing, cyanosis or edema Extremity Narrative: 2+ pedal and radial pulses Skin no rashes or lesions noted, no wounds, skin turgor normal and no jaundice Neuro oriented x3, CN's II-XII intact bilaterally, moves all extremities and no focal motor deficits Speech: speech normal Psych affect normal Psych Narrative: Very pleasant, eye contact is good, patient interacts appropriately Weight / BMI Weight Weight: 72.6 kg Body Mass Index (BMI) 23.7 ABG / Lab / Microbiology Data 08/19/23 06:52 08/19/23 06:52 Microbiology: Microbiology 08/19/23 Unknown Mucosa - Nasopharyngeal Respiratory Panel (PCR) - Final 08/18/23 20:05 Mucosa - Nose SARS-CoV-2, Influenza & RSV (PCR) - Final D/C Instructions Discharge Diet: No restrictions Discharge Activity: Return to Normal Activity Return to work on: 08/21/23 Meaningful Use Info Meaningful Use Diagnoses (Choose all that apply): None applicable Discharge Plan Admission Admit Date/Time: 08/18/23 23:46 Primary Reason for Your Visit: Shortness of breath Attending Provider: Janett Madrid Primary Care Provider: Monica Valenzuela Consulting Providers: Temo Al Discharge Orders/Prescriptions Prescriptions: New prednisone 10 mg tablet 10 mg PO DAILY Qty: 20 0RF Rx Instructions: 4 tablets x 2 days, 3 tablets x 2 days, 2 tablets x 2 days, 1 tablet x 2 days, albuterol sulfate 90 mcg/actuation HFA aerosol inhaler 1 inh inhalation Q6H PRN (Reason: shortness of breath or wheezing) Qty: 8.5 0RF Continued NK Referrals / Follow Up: Kevin Aldrich DO [Med Staff - Active Staff] - Within 3 Months (Call to set up an appointment for first availability) Monica Valenzuela MD [Primary Care Provider] - Within 1 Month Disposition Disposition (needs filled in before D/C Order can be placed): Home, Self Care Charges/Coding Visit Charges Inpatient E&M: 51343 Disch Hosp >30min
--- NOTE | 2023-08-20 12:14 | PHA.DC.MC.R ---
Pharmacy [facility] Service has performed discharge medication reconciliation and counseling for this patient. 1. ALBUTEROL MDI 1PUFF Q6H PRN SOB/WHEEZING 2. PREDNISONE 40MG PO DAILY X 2 DAYS, THEN 30MG X 2 DAYS, THEN 20MG X 2 DAYS, THEN 10MG X 2 DAYS The patient's discharge medication list was reviewed for discrepancies and discrepancies were resolved. The patient was counseled on the following discharge medications and changes in medications for homegoing were reviewed. The Reason for Use, instructions for use, and potential side effects were reviewed for all new medications. The patient's questions regarding all of their medications were answered. The patient was able to verbally demonstrate an understanding of their discharge medications. Medications at Discharge Home Medications NK 10/16/20 albuterol sulfate 90 mcg/actuation aerosol inhaler 1 inh inhalation Q6H PRN shortness of breath or wheezing #8.5 grams 08/20/23 prednisone 10 mg tablet 10 mg PO DAILY #20 tabs 08/20/23
--- NOTE | 2023-08-20 12:24 | CASEMGMT ---
Pt does not qualify for home oxygen.
[2023-08-20 14:05] VITALS: BP 116/83; PULSE 76; RESP 18; TEMP 36.8; O2SAT 96
== END 2023-08-20 14:17 | disposition home or self-care (01) | DRG 203 ==
LOC: ED 22:50 → MS3 23:53
PROVIDERS: Admitting Provider Internal Medicine; Emergency Provider Emergency Medicine; PCP Internal Medicine; Referring Provider Internal Medicine; Visit Provider Internal Medicine
DX: J45.21 Mild intermittent asthma with (acute) exacerbation (principal); J30.2 Other seasonal allergic rhinitis; M54.50 Low back pain, unspecified; Z87.891 Personal history of nicotine dependence; R73.9 Hyperglycemia, unspecified; T38.0X5A Adverse effect of glucocorticoids and synthetic analogues, initial encounter; M19.90 Unspecified osteoarthritis, unspecified site; R06.02 Shortness of breath
CPT/HCPCS: 36415; 71045; 71275; 80048; 80053; 83735; 83880; 84100; 84443; 84484; 85025; 87631; 87633; 93005; 94640; 94668; 96372; 96374; 96376; 99221; 99285; J7030; Q9967; A4216; G0378

== ENCOUNTER → 2023-09-23 | Outpatient (CLI) | payer MEDICARE, SELFPAY ==
--- NOTE | 2023-09-23 11:28 | RAD_ITS ---
INDICATION: ARTHRITIS EXAMINATION/TECHNIQUE: X-RAY - XR Hip Unilateral with Pelvis when performed; 2-3 Views COMPARISON: No relevant prior comparison study available FINDINGS: PELVIC BONES: No displaced fracture, destructive or sclerotic lesions. Note that overlapping bowel shadows may however obscure fine detail. Sacroiliac joints are unremarkable. No widening of the pubic symphysis. HIPS: The hips are well aligned. Mild joint space narrowing of both hips with small osteophytes and subchondral sclerosis. No displaced fracture seen in this frontal view. SOFT TISSUES: No soft tissue swelling or gas. RAD/HIP, UNI W/ Pelvis 2-3 Views IMPRESSION: Mild degenerative changes of the hips. Electronically Signed: Javier Hatfield MD at 6:58 EDT ,
== END | disposition home or self-care (01) ==
LOC: RAD 11:06
PROVIDERS: PCP Internal Medicine; Referring Provider Chiropractor; Visit Provider Chiropractor
DX: M16.11 Unilateral primary osteoarthritis, right hip (principal)
CPT/HCPCS: 73502

== ENCOUNTER 2023-10-22 11:50 | Day surgery (SDC) | payer MEDICARE, SELFPAY ==
[2023-10-22] MEDS: Lactated Ringers 1,000 ML 15 ML IV (12:22)
[2023-10-22 12:24] VITALS: BP 139/94; PULSE 57; RESP 16; TEMP 36.6; O2SAT 100; BMI 24.2
--- NOTE | 2023-10-22 12:51 | HP.PCM_ITS ---
HPI - General HPI Narrative JULY BURKS, is a 68 M who presents for surveillance colonoscopy. His last colonoscopy was in 2016 he did have a polyp removed. He denies any abdominal pain or blood in his stool. He is not on any blood thinners and has no family history of colon cancer. [facility] Medical History (Updated 10/22/23 @ 12:[address] Doyle Chowdhury MD) History of colon polyps Wears glasses Alcohol use Back pain History of pain when walking Former smoker Cigarette smoker Bone fracture Hearing problem Back problem Seasonal allergies Home Medications ?Medication ?Instructions ?Recorded ?Last Taken ?Type Lactobacillus acidophilus 1 1,000 mmu cells PO Q OTHER DAY 08/28/23 Unknown History billion cell capsule (Probiotic Gold Acidophilus) loratadine 10 mg tablet (Claritin) 10 mg PO DAILY PRN PRN allergy 08/28/23 Unknown History symptoms multivitamin 1 tab PO DAILY 08/28/23 Unknown History albuterol sulfate 90 mcg/actuation 1 inh inhalation Q6H PRN shortness 09/22/23 Unknown Rx aerosol inhaler of breath or wheezing #8.5 grams Allergy/AdvReac Type Severity Reaction Status Date / Time Environmental Allergies: Allergy Runny nose Verified 10/22/23 12:21 Uncoded Rabbit Allergy Shortness Verified 10/22/23 12:21 of breath Surgical History Hx of colonoscopy Social History Smoking Status: Former smoker alcohol intake: current alcohol intake frequency: a few times a week substance use type: does not use what type of physical activity do you participate in: walking frequency: daily Past Medical/Surgical History Planned Operation Planned Operative Procedure(s): CSCOPE OA Previous Hospitalizations/Surgeries HX Hospitalizations: Yes (BREATHING ISSUES) Any Problems With Anesthesia: No You/Your Family Experience Fever (Hyperthermia) With Anes: No Cholinesterase deficiency: No Cardiovascular Hx Hypertension: No Respiratory Hx Sleep Apnea: No Hx Respiratory Tract Infection/Cold (presently): No Do You Snore Loudly (louder than talking or can be heard): Yes Do You Often Feel Tired/ Fatigued/ Sleepy Dring Daytime?: No Has Anyone Observed You Stop Breathing During Sleep?: No Result (for STOP score): Negative Smoking Status: Former smoker Neurological Does patient have nerve stimulator: No Reproduction : No Miscellaneous Recent Exposure to Contagious Disease: No Allergies Environmental Allergies: Uncoded Allergy (Verified 10/22/23 12:21) Runny nose Spring/fall Rabbit Allergy (Verified 10/22/23 12:21) Shortness of breath Discharge Is Pt Admitted From a Retirement, or a Skilled Nursing: No After D/C, Where Do you Plan to Go: Return Home Vital Signs Vital Signs Vital Signs: 10/22/23 12:24 10/22/23 12:24 Temperature 97.8 F Temperature Source Temporal Pulse Rate 57 L Respiratory Rate 16 Respiratory Pattern Normal Blood Pressure 139/94 H Blood Pressure Mean 109 Blood Pressure Source Monitor Blood Pressure Position Semi-Fowlers Blood Pressure Location Right Arm Pulse Ox 100 Oxygen Delivery Method Room Air Weight Weight: 168 lb 13.985 oz Body Mass Index (BMI) 24.2 Physical Exam Const alert and oriented x3 HEENT normocephalic Eyes PERRL Resp normal respiratory effort and normal air movement Cardio regular rate and regular rhythm GI soft to palpation, non-tender and non-distended Extremity normal to inspection Assessment & Plan Assessment/Plan (1) History of colon polyps: PLAN: I explained endoscopy in detail to the patient. I explained the risks including but not limited to stroke or heart attack with anesthesia, perforation of the GI tract, bleeding, infection. I explained that any of these could necessitate further emergency surgery. The patient understands and all questions were answered sufficiently. The patient wishes to proceed with procedure. Doyle Chowdhury MD Pager: [facility] [address] [place] [address], [address] [place] [address] Office: Surgery Risks - Colonoscopy Risks Include but are not Limited To: Risks include but are not limited to: Bleeding, perforation requiring further surgery, inability to complete colonoscopy requiring barium enema.
--- NOTE | 2023-10-22 13:00 | COLBX_PTH ---
PATIENT: JULY BURKS LOC: EN U#:[id number] AGE/SX: 68/M ROOM: RE10/22/[address]: Dr. Doyle Chowdhury MD : 1955 BED: DIS: 10/22/2023 SPEC #: [id number] RECD: 10/22/23 18:04 STATUS: TI ALISE #: [id number] ADENIKE: 10/22/23 13:[address]: Doyle Chowdhury DEPT: SURGICAL PATHOLOGY RECD BY: Marichuy Be ENTERED: 10/23/23 12:08 SP TYPE: COLON BX OTHR DR: Dr. Monica Valenzuela MD Tissues: Sigmoid colon biopsy Procedures: Surgery Specimen Level IV HEADER OPERATION: Colonoscopy with polypectomy PRE-OP DIAGNOSIS: History of colonic polyps TISSUE SUBMITTED: Sigmoid polyp MICROSCOPIC DIAGNOSIS Sigmoid colon polyp, biopsy: Tubular adenoma. AM/mr 10/24/2023 MICROSCOPIC DESCRIPTION Slides are reviewed. GROSS DESCRIPTION Received in fixative is one container labeled with the patient's name and designated Sigmoid polyp. The specimen consists of one irregular fragment of light sherman soft tissue that measures 0.5 x 0.5 x 0.1 cm. The specimen is totally submitted in one cassette. ANGEL/ 10/23/2023 TC:5 CPT:95613
[2023-10-22 13:26] VITALS: BP 104/74; BP 139/94; PULSE 54; RESP 14; TEMP 36.6; O2SAT 98
--- NOTE | 2023-10-22 13:28 | OP.COLON_ITS ---
Patient Name: Jackson Brown Procedure Date: 10/22/2023 12:54 PM Date of : 1955 Age: 68 Procedure: Colonoscopy Indications: High risk colon cancer surveillance: Personal history of colonic polyps Providers: Doyle Chowdhury MD Referring MD: Monica Valenzuela Medicines: Propofol per Anesthesia Patient Profile: This is a 68 year old male. Refer to note in patient chart for documentation of history and physical. Last Colonoscopy: several years ago. Complications: No immediate complications. Procedure: Pre-Anesthesia Assessment: - Prior to the procedure, a History and Physical was performed, and patient medications and allergies were reviewed. The patient's tolerance of previous anesthesia was also reviewed. The risks and benefits of the procedure and the sedation options and risks were discussed with the patient. All questions were answered, and informed consent was obtained. Prior Anticoagulants: The patient has taken no anticoagulant or antiplatelet agents. After reviewing the risks and benefits, the patient was deemed in satisfactory condition to undergo the procedure. After I obtained informed consent, the scope was passed under direct vision. Throughout the procedure, the patient's blood pressure, pulse, and oxygen saturations were monitored continuously. The pediatric colonoscope was introduced through the anus and advanced to the cecum, identified by appendiceal orifice and ileocecal valve. The colonoscopy was performed without difficulty. The patient tolerated the procedure well. The quality of the bowel preparation was good. The ileocecal valve, appendiceal orifice, and rectum were photographed. Scope In: 1:07:55 PM Scope Withdrawal Time 0 hours 6 minutes 23 seconds Scope Out: 1:20:00 PM Total Procedure Duration Time 0 hours 12 minutes 5 seconds Findings: A small polyp was found in the sigmoid colon. The polyp was removed with a hot snare. Resection and retrieval were complete. The exam was otherwise without abnormality on direct and retroflexion views. Impression: - One small polyp in the sigmoid colon, removed with a hot snare. Resected and retrieved. - The examination was otherwise normal on direct and retroflexion views. Recommendation: - Discharge patient to home. - Resume previous diet. - Continue present medications. - Await pathology results. - Repeat colonoscopy in 5 years for surveillance based on pathology results. Procedure Code(s): --- Professional --- 50426, Colonoscopy, flexible; with removal of tumor(s), polyp(s), or other lesion(s) by snare technique Diagnosis Code(s): --- Professional --- Z86.010, Personal history of colonic polyps D12.5, Benign neoplasm of sigmoid colon CPT copyright 2021 [employer]. All rights reserved. The codes documented in this report are preliminary and upon medical imaging technologist review may be revised to meet current compliance requirements. Doyle Chowdhury MD 10/22/2023 1:27:06 PM This report has been signed electronically. Number of Addenda: 0 Note Initiated On: 10/22/2023 12:54 PM
--- NOTE | 2023-10-22 13:28 | OP.CCLET_ITS ---
10/22/2023 Monica Valenzuela [facility] [address] [place] [address] Re : Colonoscopy procedure for Jackson Brown Dear Dr. Valenzuela This procedure was performed on Sunday, October 22, 2023. My impressions and recommendations are as follows: Impressions : - One small polyp in the sigmoid colon, removed with a hot snare. Resected and retrieved. - The examination was otherwise normal on direct and retroflexion views. Recommendations : - Discharge patient to home. - Resume previous diet. - Continue present medications. - Await pathology results. - Repeat colonoscopy in 5 years for surveillance based on pathology results. My findings are described in the full procedure note, which is enclosed. If I can be of further assistance, please feel free to contact me at Doctor phone number(s): , Work: . Sincerely, Doyle Chowdhury MD 10/22/2023 1:27:06 PM This report has been signed electronically.
[2023-10-22 13:30] VITALS: BP 139/94; BP 91/64; PULSE 48; RESP 14; O2SAT 98
[2023-10-22 13:35] VITALS: BP 139/94; BP 93/71; PULSE 54; RESP 14; O2SAT 98
[2023-10-22 13:46] VITALS: BP 103/72; BP 139/94; PULSE 45; RESP 14; TEMP 36.3; O2SAT 100
[2023-10-22 14:02] VITALS: BP 139/94
== END 2023-10-22 14:12 | disposition home or self-care (01) ==
LOC: EN 11:51 → AC 11:54
PROVIDERS: PCP Internal Medicine; Referring Provider Internal Medicine; Visit Provider Surgery
PROC: 0DJD8ZZ Inspection of Lower Intestinal Tract, Via Natural or Artificial Opening Endoscopic (ICD-10-PCS; CPT 45378; principal; 2023-10-22 12:55)
DX: Z12.11 Encounter for screening for malignant neoplasm of colon (principal); K63.5 Polyp of colon; Z86.010 Personal history of colon polyps; Z87.891 Personal history of nicotine dependence
CPT/HCPCS: 45385; 88305

== ENCOUNTER → 2023-10-27 | Outpatient (CLI) | payer MEDICARE, SELFPAY ==
--- NOTE | 2023-10-27 07:19 | MRI_ITS ---
HISTORY: Lumbar radiculopathy. TECHNIQUE: Multiplanar and multisequence MR images of the lumbar spine were obtained without intravenous contrast. 163 images. COMPARISON: CXR 07/17/2023. FINDINGS: VERTEBRAE: Vertebral body heights maintained with chronic minimal anterior wedging of T11, T12, and L1. Mild degenerative endplate changes at multiple levels. No other significant bone marrow signal abnormality. ALIGNMENT: Chronic mild 2-3 mm retrolisthesis of L1-2, L2-3, and L3-4. CONUS: Normal morphology and position of the conus medullaris at L1. INTERVERTEBRAL DISCS: T12-L1: No significant posterior disc protrusion, central canal stenosis, or foraminal narrowing. L1-2: Mild posterior disc bulge osteophyte complex with facet arthropathy resulting in minimal narrowing of the thecal sac and mild bilateral foraminal narrowing. L2-3: Mild posterior disc bulge osteophyte complex with facet arthropathy resulting in mild central canal stenosis and moderate bilateral foraminal narrowing. L3-4: Mild right paracentral disc extrusion with superior migration resulting in right L4 nerve root impingement as well as moderate central canal stenosis and moderate right foraminal narrowing combination with facet arthropathy. Left foraminal component of the disc protrusion results in severe left foraminal narrowing. L4-5: Mild disc bulge with facet arthropathy resulting in mild central canal stenosis and moderate bilateral foraminal narrowing. L5-S1: Mild right paracentral disc protrusion resulting in right S1 nerve root impingement with minimal narrowing of the thecal sac and mild bilateral foraminal narrowing. SOFT TISSUES: Mild posterior subcutaneous edema. MRI/Spine Lumbar (Routine) IMPRESSION: Multilevel degenerative disc disease. Moderate spinal canal stenosis, right nerve root impingement, left nerve root abutment, and bilateral foraminal narrowing of L3-4. Mild spinal canal stenosis with moderate bilateral foraminal narrowing of L4-5. Mild right nerve root impingement of L5-S1. Electronically Signed: Angelique Moreira MD at 12:23 EDT ,
== END | disposition home or self-care (01) ==
PROVIDERS: PCP Internal Medicine; Referring Provider Internal Medicine; Visit Provider Internal Medicine
DX: M54.10 Radiculopathy, site unspecified (principal); M25.551 Pain in right hip
CPT/HCPCS: 72148

== ENCOUNTER 2025-04-06 10:29 | Emergency (ER) | payer MEDICARE, SELFPAY ==
[2025-04-06] VITALS (11 sets, daily range): BP systolic 106–145; BP diastolic 69–100; PULSE 74–95; RESP 12–24; TEMP 36.4–36.7; O2SAT 97–100; BMI 25.0
--- NOTE | 2025-04-06 11:16 | EKG12_ITS ---
Test Reason : Blood Pressure : */* mmHG Vent. Rate : 80 BPM Atrial Rate : 80 BPM P-R Int : 180 ms QRS Dur : 74 ms QT Int : 376 ms P-R-T Axes : 73 18 46 degrees QTcB Int : 433 ms Normal sinus rhythm with sinus arrhythmia Normal ECG Confirmed by HAMZAH COWAN, JENNIFER ([id number]), newspaper editor CAM VELASQUEZ ([id number]) on 04/11/2025 8:24:47 AM Referred By: Confirmed By: JENNIFER GOODSON MD
[2025-04-06 12:21] LABS: Hematocrit 44.2 % (40-54); Hemoglobin 15.5 g/dL (13.0-16.5); Immature Granulocytes Count 0.020 X10^3/uL (0.0-0.0); Mean Corp Hgb Conc 35.1 g/dL (32-36); Mean Corpuscular Volume 89.5 fL (80-94); Mean Platelet Vol. 9.8 fl (6.2-12.0); NRBC Flagged by Analyzer 0 % (0-5); Platelet Count 279 K/mm3 (150-450); RBC Distribution Width CV 12.2 % (11.6-14.6); RBC Distribution Width SD 40.0 fl (35.1-43.9); Red Blood Count 4.94 M/mm3 (4.6-6.2); White Blood Count 6.3 K/mm3 (4.4-11.0)
[2025-04-06] MEDS: 0.9% Normal Saline (1000mL) 1,000 ML 1000 ML IV (12:26)
--- NOTE | 2025-04-06 12:27 | EDS_ITS ---
HPI History of Present Illness Chief Complaint: Shortness of Breath Informant: patient Narrative Narrative: Patient 70-year-old male with 1 episode of pneumonia in the past as well as tobacco use presenting for generalized fatigue, fevers and shortness of breath o n exertion. States 2 weeks ago he had about a week of fever, almost no appetite (Tmax of 101.6) and some shortness of breath. States this week he has not had any fevers but he just been exhausted and still has decreased appetite. States that he gets very short of breath whenever he tries to walk or exert himself. Has had chills. States his breathing feels okay at rest. Denies any chest pain. States he has very rare intermittent episodes of feeling loss of balance. No falls, loss of coordination or vision changes reported. No leg swelling reported. No URI symptoms reported. Has had some body aches. States overall he has been sleeping well and denies waking up short of breath. Denies any swelling of his legs, history of PEs, recent travel or hospitalization. Initially saw primary care but came to the ER for further evaluation. No other complaints or concerns reported this time [facility] Medical History Abnormal lung examination Body aches Fever Preop exam for internal medicine History of colon polyps Wears glasses Alcohol use Back pain History of pain when walking Former smoker Cigarette smoker Bone fracture Hearing problem Back problem Seasonal allergies Home Medications Medication Instructions Recorded Last Taken Type Lactobacillus acidophilus 1 1,000 mmu cells PO Q OTHER DAY 08/28/23 Unknown History billion cell capsule (Probiotic Gold Acidophilus) loratadine 10 mg tablet (Claritin) 10 mg PO DAILY PRN PRN allergy 08/28/23 Unknown History symptoms multivitamin 1 tab PO DAILY 08/28/23 Unkn own History albuterol sulfate 90 mcg/actuation 1 inh inhalation Q6 H PRN shortness 09/22/23 Unknown Rx aerosol inhaler of breath or wheezing #8.5 g jeannie Allergy/AdvReac Type Severity Reaction Status Date / Time Environmental Allergies: Allergy Runny nose Verified 04/06/25 10:30 Uncoded Rabbit Allergy Shortness Verified 04/06/25 10:30 of breath Surgical History History of back surgery Hx of colonoscopy Social History Smoking Status: Former smoker alcohol intake: current alcohol intake frequency: a few times a week substance use type: does not use what type of physical activity do you participate in: walking frequency: daily EXAM Physical Exam Const Vital Signs: 04/06/25 10:30 04/06/25 10:33 04/06/25 10:56 Temperature 97.5 F L 98 F Temperature Source Oral Oral Pulse Rate 91 74 Respiratory Rate 20 H 14 Respiratory Effort Normal Respiratory Depth Normal Respiratory Pattern Normal Blood Pressure 109/75 126/86 H Blood Pressure [Lying] Blood Pressure Mean 86 99 Blood Pressure Mean [Lying] Pulse Ox 100 100 Oxygen Delivery Method Room Air Room Air Room Air 04/06/25 11:16 04/06/25 11:33 04/06/25 12:00 Temperature 98 F 98 F Temperature Source Oral Oral Pulse Rate 80 86 Respiratory Rate 16 18 Respiratory Effort Respiratory Depth Respiratory Pattern Blood Pressure 106/85 H 115/100 H Blood Pressure [Lying] 108/85 H Blood Pressure Mean 92 105 Blood Pressure Mean [Lying] 92 Pulse Ox 100 100 Oxygen Delivery Method Room Air Room Air 04/06/25 12:29 Temperature Temperature Source Pulse Rate 95 Respiratory Rate 12 Respiratory Effort Respiratory Depth Respiratory Pattern Blood Pressure 108/85 H Blood Pressure [Lying] Blood Pressure Mean 92 Blood Pressure Mean [Lying] Pulse Ox 99 Oxygen Delivery Method Room Air MDM MDM Lab Data Labs: Laboratory Results - last 24 hr 04/06/25 12:08 WBC 6.3 RBC 4.94 Hgb 15.5 Hct 44.2 MCV 89.5 MCH 31.4 MCHC 35.1 RDW Std Deviation 40.0 RDW Coeff of Caio 12.2 Plt Count 279 MPV 9.8 Immature Gran % (Auto) 0.300 Neut % (Auto) 73.4 H Lymph % (Auto) 16.1 L Hinds % (Auto) 7.7 Eos % (Auto) 1.7 Baso % (Auto) 0.8 Absolute Neuts (auto) 4.7 Absolute Lymphs (auto) 1.02 Nucleated RBC % 0 D-Dimer Quant (PE/DVT) 0.27 Sodium 137 Potassium 4.4 Chloride 103 Carbon Dioxide 21.9 Anion Gap 12 BUN 12 Creatinine 0.95 Estim Creat Clear Calc 76.84 Est GFR (MDRD) Non-Af 87 BUN/Creatinine Ratio 12.9 Glucose 97 Lactic Acid 1.0 Calcium 9.3 Total Bilirubin 0.82 AST 14 ALT 6 Alkaline Phosphatase 35 L Troponin T High Sens 11 Total Protein 6.6 Albumin 4.1 Globulin 2.5 Albumin/Globulin Ratio 1.7 Radiography Diagnostic Testing: Clinical Impression(s) from Imaging Studies Chest X-Ray 04/06/25 12:35 IMPRESSION: Hyperinflation. The lungs are clear. Reading Location: [facility] Discharge Plan Triage Chief Complaint: Shortness of Breath ED Provider: Carmen Montana Dx/Rx/DC Orders Prescriptions: No Action loratadine [Claritin] 10 mg tablet 10 mg PO DAILY PRN PRN (Reason: allergy symptoms) multivitamin Tablet 1 tab PO DAILY Probiotic Gold Acidophilus 1 billion cell capsule 1,000 mmu cells PO Q OTHER DAY albuterol sulfate 90 mcg/actuation HFA aerosol inhaler 1 inh inhalation Q6H PRN (Reason: shortness of breath or wheezing) Qty: 8.5 2RF Primary Care Provider: Monica Valenzuela Referrals: Monica Valenzuela MD [Primary Care Provider, Internal Medicine - [facility]] Print Language: Burundian D/C Safety Score for UGIB Assessment Kenner-Blatchford Bleeding Score (GBS): Stratifies upper GI bleeding patients who are "low-risk" and candidates for outpatient management. Sex: Male Hemoglobin, BUN, Recent Vital Signs: Hgb 15.5 g/dL (13.0-16.5) 04/06/25 12:08 BUN 12 mg/dL (4-19) 04/06/25 12:08 Pulse Rate 95 Blood Pressure [Lying] 108/85 Blood Pressure 108/85 Total Risk Score: 2 Score Interpretation: Score of 0: A GBS of 0 is a “Low Risk” GI bleed, and is highly sensitive (99.6% in a 2007 retrospective study) for predicting which patients did not require any “medical intervention”: blood transfusion, endoscopy, or surgery. This was confirmed in a 2009 Lancet study where patients with a score of 0 were actually discharged and had no GI bleeding mortality at 6 month followup Score above 0: A GBS greater than zero suggests a “High Risk” GI bleed that is likely to require “medical intervention”: transfusion, endoscopy, or surgery. A higher GBS also correlated with a higher likelihood of needing intervention Scores >/= 6 are associated with >50% risk of needing intervention D/C Safety Score for LGIB Assessment Assessment Tool: Readmission and adverse event risk in patients with acute lower GI bleeding. Age, in years: 40-69 Sex: Male Hemoglobin and Recent Vital Signs: Hgb 15.5 g/dL (13.0-16.5) 04/06/25 12:08 Pulse Rate 95 04/06/25 12:29 Blood Pressure [Lying] 108/85 04/06/25 11:16 Blood Pressure 108/85 04/06/25 12:29 Probability of safe discharge: 99% Total Risk Score: 2 Score Interpretation: Probability Percentage of safe discharge (absence of rebleeding, blood transfusion, therapeutic intervention, 28 day readmission, or ) Score of 8 or below: Consider discharge, with appropriate precautions. Score of 9 or above: Discharge NOT recommended. Consider admission with further workup and resuscitation as necessary.
--- NOTE | 2025-04-06 12:27 | EX.ED.DYSGE1 ---
HPI History of Present Illness Chief Complaint: Shortness of Breath Informant: patient Narrative Narrative: Patient 70-year-old male with 1 episode of pneumonia in the past as well as tobacco use presenting for generalized fatigue, fevers and shortness of breath on exertion. States 2 weeks ago he had about a week of fever, almost no appetite (Tmax of 101.6) and some shortness of breath. States this week he has not had any fevers but he just been exhausted and still has decreased appetite. States that he gets very short of breath whenever he tries to walk or exert himself. Has had chills. States his breathing feels okay at rest. Denies any chest pain. States he has very rare intermittent episodes of feeling loss of balance. No falls, loss of coordination or vision changes reported. No leg swelling reported. No URI symptoms reported. Has had some body aches. States overall he has been sleeping well and denies waking up short of breath. Denies any swelling of his legs, history of PEs, recent travel or hospitalization. Initially saw primary care but came to the ER for further evaluation. No other complaints or concerns reported this time [facility] Medical History Abnormal lung examination Body aches Fever Preop exam for internal medicine History of colon polyps Wears glasses Alcohol use Back pain History of pain when walking Former smoker Cigarette smoker Bone fracture Hearing problem Back problem Seasonal allergies Home Medications Medication Instructions Recorded Last Taken Type Lactobacillus acidophilus 1 1,000 mmu cells PO Q OTHER DAY 08/28/23 Unknown History billion cell capsule (Probiotic Gold Acidophilus) loratadine 10 mg tablet (Claritin) 10 mg PO DAILY PRN PRN allergy 08/28/23 Unknown History symptoms multivitamin 1 tab PO DAILY 08/28/23 Unknown History albuterol sulfate 90 mcg/actuation 1 inh inhalation Q6H PRN shortness 09/22/23 Unknown Rx aerosol inhaler of breath or wheezing #8.5 grams doxycycline monohydrate 100 mg 100 mg PO BID #14 CAPSULES 04/06/25 Unknown Rx capsule prednisone 20 mg tablet 40 mg (2 x 20 mg) PO DAILY #8 tabs 04/06/25 Unknown Rx Allergy/AdvReac Type Severity Reaction Status Date / Time Environmental Allergies: Allergy Runny nose Verified 04/06/25 10:30 Uncoded Rabbit Allergy Shortness Verified 04/06/25 10:30 of breath Surgical History History of back surgery Hx of colonoscopy Social History Smoking Status: Former smoker alcohol intake: current alcohol intake frequency: a few times a week substance use type: does not use what type of physical activity do you participate in: walking frequency: daily ROS ROS ED Constitutional Constitutional ED: Reports chills, fever(s) and other Details: Poor appetite Cardiovascular Cardiovascular: Denies chest pain Respiratory/Chest Respiratory/Chest: Reports dyspnea and dyspnea on exertion; Denies cough Gastrointestinal Gastrointestinal: Denies abdominal pain, nausea or vomiting Genitourinary Genitourinary ED: Denies dysuria Musculoskeletal Musculoskeletal: Reports myalgias; Denies arthralgias Integumentary Denies rash Neurologic Neurologic: Reports weakness; Denies paresthesias Psychiatric Psychiatric: Denies anxiety Hematologic/Lymphatic Hematologic/Lymphatic: Denies easy bleeding or easy bruising EXAM Physical Exam Const Vital Signs: 04/06/25 10:30 04/06/25 10:33 04/06/25 10:56 Temperature 97.5 F L 98 F Temperature Source Oral Oral Pulse Rate 91 74 Pulse Rate [Lying] Pulse Rate [Sitting (for 1 minute prior to obtaining)] Pulse Rate [Standing (for 1 minute prior to obtaining)] Respiratory Rate 20 H 14 Respiratory Effort Normal Respiratory Depth Normal Respiratory Pattern Normal Blood Pressure 109/75 126/86 H Blood Pressure [Lying] Blood Pressure [Sitting (for 1 minute prior to obtaining)] Blood Pressure [Standing (for 1 minute prior to obtaining)] Blood Pressure Mean 86 99 Blood Pressure Mean [Lying] Blood Pressure Mean [Sitting (for 1 minute prior to obtaining)] Blood Pressure Mean [Standing (for 1 minute prior to obtaining)] Pulse Ox 100 100 Oxygen Delivery Method Room Air Room Air Room Air 04/06/25 11:16 04/06/25 11:16 04/06/25 11:33 Temperature 98 F Temperature Source Oral Pulse Rate 80 Pulse Rate [Lying] 75 Pulse Rate [Sitting (for 1 minute prior to obtaining)] 80 Pulse Rate [Standing (for 1 minute prior to obtaining)] 90 Respiratory Rate 16 Respiratory Effort Respiratory Depth Respiratory Pattern Blood Pressure 106/85 H Blood Pressure [Lying] 108/85 H 108/85 H Blood Pressure [Sitting (for 1 minute prior to obtaining)] 106/85 H Blood Pressure [Standing (for 1 minute prior to obtaining)] 115/100 H Blood Pressure Mean 92 Blood Pressure Mean [Lying] 92 92 Blood Pressure Mean [Sitting (for 1 minute prior to obtaining)] 92 Blood Pressure Mean [Standing (for 1 minute prior to obtaining)] 105 Pulse Ox 100 Oxygen Delivery Method Room Air 04/06/25 12:00 04/06/25 12:29 04/06/25 13:00 Temperature 98 F 98 F Temperature Source Oral Oral Pulse Rate 86 95 74 Pulse Rate [Lying] Pulse Rate [Sitting (for 1 minute prior to obtaining)] Pulse Rate [Standing (for 1 minute prior to obtaining)] Respiratory Rate 18 12 24 H Respiratory Effort Respiratory Depth Respiratory Pattern Blood Pressure 115/100 H 108/85 H 140/93 H Blood Pressure [Lying] Blood Pressure [Sitting (for 1 minute prior to obtaining)] Blood Pressure [Standing (for 1 minute prior to obtaining)] Blood Pressure Mean 105 92 108 Blood Pressure Mean [Lying] Blood Pressure Mean [Sitting (for 1 minute prior to obtaining)] Blood Pressure Mean [Standing (for 1 minute prior to obtaining)] Pulse Ox 100 99 100 Oxygen Delivery Method Room Air Room Air Room Air 04/06/25 14:00 04/06/25 14:00 Temperature Temperature Source Pulse Rate 86 74 Pulse Rate [Lying] Pulse Rate [Sitting (for 1 minute prior to obtaining)] Pulse Rate [Standing (for 1 minute prior to obtaining)] Respiratory Rate 14 18 Respiratory Effort Respiratory Depth Respiratory Pattern Blood Pressure 138/88 H 145/93 H Blood Pressure [Lying] Blood Pressure [Sitting (for 1 minute prior to obtaining)] Blood Pressure [Standing (for 1 minute prior to obtaining)] Blood Pressure Mean 104 110 Blood Pressure Mean [Lying] Blood Pressure Mean [Sitting (for 1 minute prior to obtaining)] Blood Pressure Mean [Standing (for 1 minute prior to obtaining)] Pulse Ox 99 100 Oxygen Delivery Method Room Air Positive well nourished and well developed General Appearance ED: well developed and NAD HEENT Reports moist mucous membranes Eyes PERRL General Eye ED: Negative for scleral icterus Neck supple and no JVD Chest Wall inspection of chest normal and palpation of chest normal Resp normal respiratory effort and clear to auscultation bilaterally Cardio regular rate, regular rhythm and no murmurs GI normal to inspection, nondistended, normoactive bowel sounds and non-tender Extremity normal to inspection General Extremety ED: Negative for edema General Extremity: Negative for edema Neuro oriented x3 and no sensory deficits noted Sensorium / Orientation: alert Motor Exam: strength 5/5 throughout and general weakness Psych mental status grossly normal Skin no rashes or lesions noted and no wounds MDM MDM MDM Narrative Medical decision making narrative: Patient is evaluated for weakness, generalized malaise and dyspnea on exertion. Symptoms been going on for the past 2 weeks. This started with fever however now just exhausted and has poor appetite. No fever over the last week. Upon arrival patient has a soft blood pressure but otherwise normal vital signs. Is not actually hypotensive. Infectious and cardiac workup is obtained. Differential includes not limited to viral syndrome, symptomatic anemia, pneumonia, symptomatic pleural effusion, sepsis, urinary tract infection, ACS, pericarditis myocarditis. Patient given IV fluids. Low risk for pulmonary emboli based on Wells criteria and I do think a D-dimer is sufficient to rule out pulmonary emboli. Workup including CBC, CMP, delta high-sensitivity troponin and urinalysis is obtained. It is largely normal except for urinalysis which does show signs of dehydration with 150 ketones and 5-10 hyaline cast. After IV fluids orthostatic vital signs obtained which are negative. Patient ambulated with no hypoxia. Chest x-ray viewed by myself as well as radiology and shows hyperinflation but no other acute process. EKG does not show any ischemic changes. At this time I do not think patient requires admission the hospital and he is comfortable with being discharged home. Will be placed on a course of prednisone and doxycycline for symptoms suspect he does actually have an underlying respiratory illness whether it is viral or bacterial but subtle and not showing up on his chest x-ray. Case was discussed with his PCP, Dr. Addison who is agreeable with this plan of care. Discharged home in stable condition. Notes he still feels very tired but does feel little better after receiving IV fluids. Lab Data Attestation: I reviewed the patient's lab results. Labs: Laboratory Results - last 24 hr 04/06/25 04/06/25 04/06/25 12:08 13:17 14:15 WBC 6.3 RBC 4.94 Hgb 15.5 Hct 44.2 MCV 89.5 MCH 31.4 MCHC 35.1 RDW Std Deviation 40.0 RDW Coeff of Caio 12.2 Plt Count 279 MPV 9.8 Immature Gran % (Auto) 0.300 Neut % (Auto) 73.4 H Lymph % (Auto) 16.1 L [place] % (Auto) 7.7 Eos % (Auto) 1.7 Baso % (Auto) 0.8 Absolute Neuts (auto) 4.7 Absolute Lymphs (auto) 1.02 Nucleated RBC % 0 D-Dimer Quant (PE/DVT) 0.27 Sodium 137 Potassium 4.4 Chloride 103 Carbon Dioxide 21.9 Anion Gap 12 BUN 12 Creatinine 0.95 Estim Creat Clear Calc 76.84 Est GFR (MDRD) Non-Af 87 BUN/Creatinine Ratio 12.9 Glucose 97 Lactic Acid 1.0 Calcium 9.3 Total Bilirubin 0.82 AST 14 ALT 6 Alkaline Phosphatase 35 L Troponin T High Sens 11 Troponin T Hi Sens 2 Hr 11 Total Protein 6.6 Albumin 4.1 Globulin 2.5 Albumin/Globulin Ratio 1.7 Urine Color Yellow Urine Clarity Clear Urine pH 6.5 Ur Specific [place] 1.015 Urine Protein 30 H Urine Glucose (UA) Normal Urine Ketones 150 A* Urine Occult Blood 10 H Urine Nitrite Negative Urine Bilirubin 1 H Urine Urobilinogen 8 H Ur Leukocyte Esterase 25 H Urine RBC 0 SEEN Urine WBC 0-5 SEEN Ur Squamous Epith Cells 0 SEEN Urine Bacteria 0 SEEN Hyaline Casts 5-10 SEEN Urine Mucus 2+ Radiography Chest X-Ray - ED: 2 View, Read by ED Physician, Read by Radiologist and No Acute Disease Diagnostic Testing: Clinical Impression(s) from Imaging Studies Chest X-Ray 04/06/25 12:35 IMPRESSION: Hyperinflation. The lungs are clear. Reading Location: [place] [id number] Rhythm Strip Rhythm Strip: Sinus Rhythm Rate: 80 Ectopy: None EKG Initial EKG: Attestation: I personally reviewed and interpreted this EKG as follows: Interpretation: Sinus Rhythm Comments: Normal sinus rhythm with sinus arrhythmia at a rate of 80 bpm Normal axis Normal intervals Normal ST segments Management Discussion w/another healthcare provider: PCP Discharge Plan Triage Chief Complaint: Shortness of Breath ED Provider: Carmen Montana Dx/Rx/DC Orders Clinical Impression: Respiratory infection, Weakness, SANDOVAL (dyspnea on exertion) Instructions: ED Dyspnea Prescriptions: New prednisone 20 mg tablet 40 mg PO DAILY Qty: 8 0RF doxycycline monohydrate 100 mg capsule 100 mg PO BID Qty: 14 0RF No Action loratadine [Claritin] 10 mg tablet 10 mg PO DAILY PRN PRN (Reason: allergy symptoms) multivitamin Tablet 1 tab PO DAILY Probiotic Gold Acidophilus 1 billion cell capsule 1,000 mmu cells PO Q OTHER DAY albuterol sulfate 90 mcg/actuation HFA aerosol inhaler 1 inh inhalation Q6H PRN (Reason: shortness of breath or wheezing) Qty: 8.5 2RF Primary Care Provider: Monica Valenzuela Referrals: Monica Valenzuela MD [Primary Care Provider, Internal Medicine - [facility]] Activity Restrictions/Additional Instructions: I did speak with Dr. Addison. He is comfortable with having you follow-up and be discharged home. He is agreeable with the prescriptions that were sent in today (steroids and antibiotic). He would like to see you in office on Friday. Please call to make an appointment. If you develop fever above 100.4, worsening symptoms at rest, difficulty laying flat or chest pain please do not hesitate to return to the emergency room for repeat evaluation. Print Language: Japanese Disposition Disposition: Home, Self Care D/C Safety Score for UGIB Assessment Robinson-Blatchford Bleeding Score (GBS): Stratifies upper GI bleeding patients who are "low-risk" and candidates for outpatient management. Sex: Male Hemoglobin, BUN, Recent Vital Signs: Hgb 15.5 g/dL (13.0-16.5) 04/06/25 12:08 BUN 12 mg/dL (4-19) 04/06/25 12:08 Pulse Rate [Standing (for 1 90 minute prior to obtaining)] Pulse Rate [Sitting (for 1 80 minute prior to obtaining)] Pulse Rate [Lying] 75 Pulse Rate 74 Blood Pressure [Standing (for 115/100 1 minute prior to obtaining)] Blood Pressure [Sitting (for 1 106/85 minute prior to obtaining)] Blood Pressure [Lying] 108/85 Blood Pressure 145/93 Total Risk Score: 2 Score Interpretation: Score of 0: A GBS of 0 is a “Low Risk” GI bleed, and is highly sensitive (99.6% in a 2007 retrospective study) for predicting which patients did not require any “medical intervention”: blood transfusion, endoscopy, or surgery. This was confirmed in a 2009 Lancet study where patients with a score of 0 were actually discharged and had no GI bleeding mortality at 6 month followup Score above 0: A GBS greater than zero suggests a “High Risk” GI bleed that is likely to require “medical intervention”: transfusion, endoscopy, or surgery. A higher GBS also correlated with a higher likelihood of needing intervention Scores >/= 6 are associated with >50% risk of needing intervention D/C Safety Score for LGIB Assessment Assessment Tool: Readmission and adverse event risk in patients with acute lower GI bleeding. Age, in years: 40-69 Sex: Male Hemoglobin and Recent Vital Signs: Hgb 15.5 g/dL (13.0-16.5) 04/06/25 12:08 Pulse Rate [Standing (for 1 90 04/06/25 11:16 minute prior to obtaining)] Pulse Rate [Sitting (for 1 80 04/06/25 11:16 minute prior to obtaining)] Pulse Rate [Lying] 75 04/06/25 11:16 Pulse Rate 74 04/06/25 14:00 Blood Pressure [Standing (for 115/100 04/06/25 11:16 1 minute prior to obtaining)] Blood Pressure [Sitting (for 1 106/85 04/06/25 11:16 minute prior to obtaining)] Blood Pressure [Lying] 108/85 04/06/25 11:16 Blood Pressure 145/93 04/06/25 14:00 Probability of safe discharge: 99% Total Risk Score: 2 Score Interpretation: Probability Percentage of safe discharge (absence of rebleeding, blood transfusion, therapeutic intervention, 28 day readmission, or ) Score of 8 or below: Consider discharge, with appropriate precautions. Score of 9 or above: Discharge NOT recommended. Consider admission with further workup and resuscitation as necessary.
--- NOTE | 2025-04-06 12:33 | NURSING ---
orthostatics lyin/85. sittin/85. standin/100
--- NOTE | 2025-04-06 12:35 | RAD_ITS ---
PROCEDURE: CHEST PA AND LATERAL 04/06/2025 REASON FOR EXAM: SOB TECHNIQUE: Procedure Code: RADCXR Modality: DX Procedure: CHEST PA AND LATERAL COMPARISON: August 17, 2022. FINDINGS: Hardware: EKG electrodes are seen. Heart: The heart size is normal. Mediastinum: The mediastinal contour is unremarkable. Lungs: Hyperinflation. The lungs are clear. Bones: Degenerative changes are identified within the thoracic spine. RAD/Chest PA and Lateral IMPRESSION: Hyperinflation. The lungs are clear. Reading Location: [place] [id number]
[2025-04-06 12:39] LABS: D-Dimer Quantitative (DVT/PE) 0.27 FEU/ug/m (0.27-0.49)
[2025-04-06 12:42] LABS: Troponin T High Sensitivity 11 ng/L (<=22)
[2025-04-06 12:45] LABS: AST(SGOT) 14 U/L (<=37); Alanine Aminotransfer ALT/SGPT 6 U/L (<=46); Albumin, Serum 4.1 g/dL (3.4-4.8); Alkaline Phosphatase 35 U/L (40-129); Anion Gap 12 (5-15); BUN 12 mg/dL (4-19); BUN/Creat Ratio 12.9 RATIO (10-20); Calcium,Total 9.3 mg/dL (7.6-11.0); Carbon Dioxide 21.9 mmol/L (21.0-32.0); Chloride 103 mmol/L (98-108); Estimated Creatinine Clearance 76.84 ml/min (50-250); Globulin 2.5 g/dL (2.2-4.2); Glucose 97 mg/dL (70-99); Potassium 4.4 mmol/L (3.3-5.1)
[2025-04-06 13:23] LABS: Red Blood Cells-Urine 0 SEEN /hpf (0-5); Squamous Epithelial Cells - UA 0 SEEN /hpf (0-5)
[2025-04-06 13:27] LABS: Color, Urine Yellow (Yellow); Glucose, Dipstick Normal (Normal); Leukocyte Esterase-Dipstick 25 /ul (Negative); Nitrite-Dipstick Negative (Negative); Occult Blood-Urine 10 /ul (Negative); Protein-Dipstick 30 mg/dl (Negative); Specific Gravity, Urine 1.015 (1.002-1.030)
[2025-04-06 13:28] LABS: Urine Bilirubin Dipstick 1 mg/dL (Negative)
[2025-04-06 13:34] LABS: Mucous, Urine 2+ /hpf (<or=2+)
[2025-04-06 15:08] LABS: Troponin T High Sens 2 HR 11 ng/L (<=22)
[2025-04-07 03:02] LABS: Ketone-Dipstick 150 mg/dl (Negative)
== END 2025-04-06 16:09 | disposition home or self-care (01) ==
PROVIDERS: Emergency Provider Emergency Medicine; PCP Internal Medicine; Visit Provider Emergency Medicine
DX: R06.02 Shortness of breath (principal); Z87.891 Personal history of nicotine dependence; E86.0 Dehydration; R53.1 Weakness; J98.8 Other specified respiratory disorders
CPT/HCPCS: 71046; 80053; 81001; 83605; 84484; 85025; 85379; 93005; 96360; 99285; A4216